=== PATIENT | female | born 1950 | race Caucasian/White ===

== ENCOUNTER 2017-01-22 13:27 | Emergency (ER) | payer MEDICARE, OTHER ==
[~2017-01-22 13:27] MED LIST: AMLO1TAB76 PO; ENAL20TA79 PO; HYDR25TA4 PO; METF-488 PO; OMEP20TA86 PO; RISP0.5T18 PO; SMV40T PO
[2017-01-22 13:29] VITALS: BP 159/62; PULSE 71; RESP 16; O2SAT 98
[2017-01-22 14:01] LABS: INR 2.51 ratio
--- NOTE | 2017-01-22 14:17 | ED.REPORT ---
HPI-General Illness Date of Service Jan 22, 2017 ED Provider: Heriberto Moraes PA-C Rain is a 67-year-old female with a history of A. fib, hypertension, diabetes, hyperlipidemia who presents with persistent bleeding from her mouth. She states that the bleeding started when she bit into a sharp piece of toast. She feels "flap of skin" behind her front teeth. She is on Coumadin for her atrial fibrillation, and her last INR was 2.8. She denies other complaints. Nursing Notes Stated Complaint: BLOOD LOSS Chief Complaint: General Complaint Nursing Notes Reviewed: Yes Allergies: Coded Allergies: codeine (Verified Allergy, Severe, itchy and hives all over, 01/22/17) shrimp (Verified Allergy, Severe, itchy and hives all over, 01/22/17) Scheduled Amlodipine/Atorvastatin (Amlodipine-Atorvast 10-10 Mg) 1 Each Tablet 1 EACH PO DAILY Enalapril-Expunged Drug, Do Not Renew! (Enalapril-Expunged Drug, Do Not Renew!) 20 Mg Tablet 20 MG PO BID Hydrochlorothiazide-Expunged, Do Not Renew! (Hydrochlorothiazide-Expunged, Do Not Renew!) 25 Mg Tablet 25 MG PO AM Metformin-Expunged Drug, Do Not Renew! (Metformin-Expunged Drug, Do Not Renew!) 1,000 Mg Tab.er.24 1,000 MG PO BIDWM Omeprazole-Expunged Drug, Do Not Renew! (Omeprazole-Expunged Drug, Do Not Renew! ) 20 Mg Tablet.dr 20 MG PO BID Risperidone-Expunged Drug, Do Not Renew! (Risperdal-Expunged Drug, Do Not Renew! ) 0.5 Mg Tablet 0.5 MG PO BID Simvastatin-Expunged Drug, Choose New Med! (Simvastatin-Expunged Drug, Choose New Med!) 40 Mg Tablet 40 MG PO HS General Time Seen by MD: 14:00 Chief Complaint Other (persistent bleeding from the mouth.) Past Medical History Past Medical History Atrial fibrillation, hypertension, hyperlipidemia, DM Review of Systems Negative unless stated otherwise in history of present illness Physical Exam General: Well appearing, well developed, well nourished, no acute distress. Head: Atraumatic, normocephalic. Eyes: No scleral icterus or injection. No discharge. Vision grossly intact. ENT: Voice clear, hearing grossly intact. Mouth: Brisk bleeding from a small wound immediately posterior to the upper central incisors. Respiratory: No respiratory distress, no increased work of breathing. Speaks in complete sentences. Skin: Warm and dry. Neurological: Grossly nonfocal. Psychological: alert and oriented. Speech appropriate, linear and logical. Behavior appropriate. Vital Signs Vital Signs Date Time Temp Pulse Resp B/P Pulse Ox O2 Delivery O2 Flow Rate FiO2 01/22/17 17:52 81 16 164/99 96 Room Air 01/22/17 17:40 81 20 164/99 96 01/22/17 13:29 36.1 71 16 159/62 98 Initial VS: Reviewed, Vital signs normal Interpretation & Diagnostics Lab Results Interpretation Test 01/22/17 13:53 Prothrombin Time 27.4sec (8.1-12.5) Prothromb Time International Ratio 2.51ratio Re-Eval/Medical Decision Med Decision/Clinical Course 67-year-old female with history of A. fib on Coumadin presents with a chief complaint of bleeding in her mouth that started when she bit into a piece of sharp toast. Bleeding started approximately 10 minutes prior to presentation. Bleeding was refractory to cauterization with silver nitrate but responded well , eventually to 2 rounds of topical 1-1000 epinephrine and direct pressure. Patient is stable and safe to be discharged home. She understands and agrees with the plan. Advise primary care follow-up, emergency return precautions. I discussed this case with Dr. Vasquez. The patient is noted to be somewhat hypertensive at discharge. She does not appear to be symptomatic. She has an appointment with her primary care provider tomorrow. I advised her to address this at that appointment. Time of Eval: 15:18 Patient Status: Condition improved Re-Evaluation/Progress Note: Bleeding is slowed following treatment with silver nitrate. Applied 0.1 mL of 1-1000 epinephrine on a cotton ball with direct pressure for 15 minutes by the patient. Afterwards, bleeding has slowed to an extremely mild seep. Patient denies systemic effects of epinephrine. Will reevaluate in 10-15 minutes and consider discharge. Time of Eval: 16:14 Re-Evaluation/Progress Note: Bleeding appeared to have almost completely stopped and we were preparing for discharge. However when I had her sit up to road test, bleeding resumed. We will attempt another cycle with epinephrine and reassess. Patient Status: Condition improved Re-Evaluation/Progress Note: Bleeding seems to have stopped after the second round of epinephrine topical with direct pressure. Will monitor for 15-20 minutes and reassess. Patient Status: Condition improved Re-Evaluation/Progress Note: Patient's bleeding has almost completely stopped. She feels prepared for discharge. I think this is reasonable as she seems stable. Discharge & Departure Primary Impression: Laceration of oral cavity Encounter type: initial encounter Qualified Code: S01.512A - Laceration without foreign body of oral cavity, initial encounter Additional Impression: Elevated blood pressure Discharge Condition All VS Reviewed: Yes Condition: Stable Additional Instructions: Evaluation for mouth breathing in the emergency department. Physical examination revealed a small wound just behind her central upper teeth. Your INR 2.51 which is the expected value. Bleeding was stopped with a combination of cauterization with silver nitrate and topical application of epinephrine. The condition seems significantly improved and a stable and safe to be discharged home. I recommend Tylenol for the pain. Avoid crunchy food until the laceration is completely healed. If the bleeding resumes, I encourage you to attempt to stop the bleeding by applying direct pressure continuously for 15- 20 minutes with gauze. If that fails, return to the emergency department. Follow up with your primary care provider if not improved significantly in 3-4 days. Return to emergency department for new or worsening symptoms including resumed bleeding. Referrals: Mohsen Rivera MD EDSupervising Provider for [facility]: Rolando Vasquez MD copies to: Mohsen Rivera MD, Seth PA-C Jan 22, 2017 14:17
[2017-01-22] MEDS ORDERED: Silver Nitrate Stick TOPICAL ONE (14:20)
[2017-01-22 17:40] VITALS: BP 164/99; PULSE 81; RESP 20; O2SAT 96
[2017-01-22 17:52] VITALS: BP 164/99; PULSE 81; RESP 16; O2SAT 96
== END 2017-01-22 17:53 | disposition home or self-care (01) ==
LOC: SED 13:27
DX: S01.512A Laceration without foreign body of oral cavity, initial encounter (principal); W26.8XXA Contact with other sharp object(s), not elsewhere classified, initial encounter; Y92.511 Restaurant or cafe as the place of occurrence of the external cause; Y93.89 Activity, other specified; Y99.8 Other external cause status; I10 Essential (primary) hypertension; I48.91 Unspecified atrial fibrillation; E11.9 Type 2 diabetes mellitus without complications; E78.5 Hyperlipidemia, unspecified; Z79.01 Long term (current) use of anticoagulants; Z79.84 Long term (current) use of oral hypoglycemic drugs; Z88.5 Allergy status to narcotic agent
CPT/HCPCS: 36415; 85610; 99283; J0171